=== PATIENT | female | born 1945 | race Caucasian/White ===

== ENCOUNTER 2024-01-30 07:25 | Day surgery (SDC) | payer MEDICARE, OTHER ==
[2024-01-30] VITALS (7 sets, daily range): BP systolic 122–147; BP diastolic 61–83; PULSE 67–72; TEMP 97.7
[~2024-01-30] VITALS: Ht 152.4 cm; Wt 121.2 kg
[2024-01-30] MEDS ORDERED: ZESTRIL 5MG5 MG PO (08:15)
[2024-01-30] MEDS ORDERED: K-DUR20 MEQ PO (08:15)
[2024-01-30] MEDS ORDERED: LIPITOR 40MG TA40 MG PO (08:16)
[2024-01-30] MEDS ORDERED: ASPIRIN E.C. 8181 MG PO (08:16)
[2024-01-30] MEDS ORDERED: TOPROL XL 25MG25 MG PO (08:17)
[2024-01-30] MEDS ORDERED: SYNTHROID0.1 MG/TAB PO (08:18)
[2024-01-30] MEDS ORDERED: BENADRYL25 M2 PO (08:18)
[2024-01-30] MEDS ORDERED: LASIX 40MG TABL40 MG PO (08:18)
[2024-01-30] MEDS ORDERED: TYLENOL 500MG500 MG PO (08:19)
[2024-01-30] MEDS ORDERED: TRIAMCINOLONE A15 G3 TP (08:19)
[2024-01-30] MEDS ORDERED: NYSTATIN100000 U/1 TOP (08:20)
[2024-01-30] MEDS ORDERED: FLONASEALLERGY NS (08:20)
[2024-01-30 08:21] LABS: BASO % 0.4 % (0.0-2.0); EOS # 0.2 K/mm3 (0.0-0.7); EOS % 3.1 % (0.0-4.0); GRAN % 59.1 % (42.2-75.2); HEMOGLOBIN 12.6 g/dl (12.5-16.0); LYMPH # 1.8 K/mm3 (1.2-3.4); LYMPH % 26.9 % (20.0-51.0); MEAN CELL VOLUME 87 fl (80.0-100.0); MEAN CORPUSCULAR HEMOGLOBIN 29 pg (27-31); MEAN CORPUSCULAR HGB CONC 33 g/dl (33.0-37.0); MEAN PLATELET VOLUME 9.5 fl (7.4-10.4); MONO # 0.7 K/mm3 (0.1-0.6); MONO % 10.1 % (1.7-9.3); PLATELET COUNT 160 K/mm3 (130-400); RED BLOOD COUNT 4.36 M/mm3 (4.10-5.30); REDCELL DISTRIBUTION WIDTH-CV 14.6 % (11.5-14.5)
[2024-01-30] MEDS ORDERED: VICKS VAPORUB 41 OIN TOP (08:21)
[2024-01-30 08:23] LABS: INR 1.1 (0.8-3.0); PROTHROMBIN TIME 11.5 SECONDS (9.7-12.8)
[2024-01-30 08:33] LABS: CALCIUM 9.6 mg/dL (8.4-10.2); CREATININE, serum 1.03 mg/dL (0.57-1.11)
[2024-01-30] MEDS ORDERED: 1/2 NS 1,000 ML IV SCH (09:00)
[2024-01-30] MEDS ORDERED: NS Flush 10 ML SYRINGE PRN ICA (09:00)
[2024-01-30] MEDS ORDERED: NS Flush 10 ML SYRINGE BID ICA SCH (09:00)
[2024-01-30] MEDS ORDERED: Lidocaine PF 2% (20 MG/ML) 5 ML VIAL ONE (09:20)
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
--- NOTE | 2024-01-30 11:16 | NUR ---
Pt assisted out to meet transport for ride home via wheelchair with belongings. Pt is alert, oriented. She has had coffee and water, and granola bar during recovery. She has ambulated to restroom with steady gait. She expressed understanding of DC instructions. IV DC'd, site wrapped with coban.
== END 2024-01-30 11:16 | disposition home or self-care (01) ==
LOC: COL.CAR 07:25
PROVIDERS: Internal Medicine Cardiovascular Disease
DX: I08.1 Rheumatic disorders of both mitral and tricuspid valves (principal); I13.0 Hypertensive heart and chronic kidney disease with heart failure and stage 1 through stage 4 chronic kidney disease, or unspecified chronic kidney disease; I50.9 Heart failure, unspecified; N18.9 Chronic kidney disease, unspecified; Z79.899 Other long term (current) drug therapy; Z79.82 Long term (current) use of aspirin; Z95.2 Presence of prosthetic heart valve
CPT/HCPCS: J2704